=== PATIENT | male | born 1955 | race African-American/Black ===

== ENCOUNTER 2017-12-08 21:58 | Emergency (ER) | payer MEDICAID ==
[~2017-12-08] VITALS: Ht 175.3 cm; Wt 63.0 kg
[2017-12-08] MEDS ORDERED: VITAMIN C500 M1 ORAL (22:17)
[2017-12-08] MEDS ORDERED: AMLODIPINE BESY10 MG ORAL (22:17)
[2017-12-08 22:20] VITALS: BP 170/92
--- NOTE | 2017-12-08 22:22 | Emergency Room Report ---
History of Present Illness General Chief Complaint: Chest Pain Source: Patient Present Illness HPI This is a 62-year-old male with history of high blood pressure and numb neck and throat cancer. He is status post tracheostomy and radiation. He said he just had a full body scan a few days ago and was told looks good. He presents with chief complaint of low blood count and mild chest tightness that's been ongoing for last 4 days. No fever chills. No nausea no vomiting. No radiation. Does feel tired when he walks. No other complaint. Allergies: Coded Allergies: No Known Allergies (Unverified , 12/08/17) Patient History Past Medical History: see triage record, old chart reviewed, HTN Past Surgical History: other Pertinent Family History: none Social History: Denies: smoking Immunizations: other Reviewed Nursing Documentation: PMH: Agreed; PSxH: Agreed Nursing Documentation-PMH Hx Cardiac Problems: Yes - CHF Hx Hypertension: Yes Hx Cancer: Yes - tongue cancer Review of Systems Constitutional: Reports: weakness Eye: Denies: eye pain, blurred vision ENT: Denies: ear pain, nose congestion, throat swelling Respiratory: Denies: cough, shortness of breath Cardiovascular: Reports: chest pain; Denies: palpitations Gastrointestinal: Denies: abdominal pain, diarrhea, nausea, vomiting Musculoskeletal: Denies: back pain, joint pain Skin: Denies: rash Neurological: Denies: headache, numbness Endocrine: Denies: increased thirst, increased urine Hematologic/Lymphatic: Denies: easy bruising All Other Systems: negative except mentioned in HPI Physical Exam Vital Signs Date Time Temp Pulse Resp B/P (MAP) Pulse Ox O2 Delivery O2 Flow Rate FiO2 12/08/17 22:13 85 13 170/92 100 Room Air vitals with high blood pressure Sp02 EP Interpretation: reviewed, normal General Appearance: well appearing, no apparent distress, alert Head: normocephalic, atraumatic Eyes: bilateral eye PERRL, bilateral eye EOMI ENT: hearing grossly normal, normal pharynx Neck: full range of motion, supple, no meningismus, tracheotomy Respiratory: chest non-tender, lungs clear, normal breath sounds Cardiovascular #1: regular rate, rhythm, no murmur Gastrointestinal: normal bowel sounds, non tender, no mass, no organomegaly, no bruit, non-distended Musculoskeletal: back normal, gait/station normal, normal range of motion Psychiatric: mood/affect normal Skin: warm/dry Medical Decision Making Diagnostic Impression: Primary Impression: Anemia Qualified Codes: D64.9 - Anemia, unspecified Additional Impression: CKD (chronic kidney disease) Qualified Codes: N18.9 - Chronic kidney disease, unspecified ER Course Patient with anemia. No evidence of ACS, PE, dissection to name a few. We'll put on iron supplements. He does say that he has kidney problem but doesn't know his creatinine level. will print out labs for his doctor. Lab Results Impression labs with anemia and elevated creatinine EKG Diagnostic Results Rate: normal Rhythm: NSR ST Segments: no acute changes Rhythm Strip Diag. Results Rhythm Strip Time: 22:35 EP Interpretation: yes Rate: 85 Rhythm: NSR, no PVC's, no ectopy Chest X-Ray Diagnostic Results Chest X-Ray Diagnostic Results : Chest X-Ray Ordered: Yes # of Views/Limited/Complete: 1 View Indication: Chest Pain EP Interpretation: Yes Interpretation: no consolidation, no effusion, no pneumothorax, no acute cardiopulmonary disease, other - trach Impression: No acute disease Electronically Signed by: Champ Stanford MD Last Vital Signs Date Time Temp Pulse Resp B/P (MAP) Pulse Ox O2 Delivery O2 Flow Rate FiO2 12/08/17 22:13 85 13 170/92 100 Room Air Status: improved Disposition: HOME, SELF-CARE Condition: Stable Scripts Ferrous Sulfate (Ferrous Sulfate) 300 Mg/5 Ml Liquid 300 MG GT DAILY for 90 Days, ML Prov: CHAMP STANFORD M.D. 12/08/17 Additional Instructions: follow-up with your doctor in 7 days. Return if symptoms worsen. CHAMP STANFORD M.D. Dec 08, 2017 22:22
[2017-12-08 22:54] LABS: HEMATOCRIT 25.3 % (42.0-52.0); HEMOGLOBIN 8.4 G/DL (14.2-18.0); MEAN CORPUSCULAR VOLUME 87 FL (80-99); PLATELET COUNT 423 K/UL (150-450); RED BLOOD COUNT 2.91 M/UL (4.70-6.10); WHITE BLOOD COUNT 6.5 K/UL (4.8-10.8)
[2017-12-08 22:57] LABS: BASOPHILS % (AUTO) 0.4 % (0.0-2.0); EOSINOPHILS % (AUTO) 0.2 % (0.0-3.0); LYMPHOCYTES % (AUTO) 4.7 % (20.0-45.0); MONOCYTES % (AUTO) 4.6 % (1.0-10.0); NEUTROPHILS % (AUTO) 90.2 % (45.0-75.0)
[2017-12-08 23:04] LABS: ANION GAP 4 mmol/L (5-15); BLOOD UREA NITROGEN 24 mg/dL (7-18); CALCIUM 9.2 MG/DL (8.5-10.1); CARBON DIOXIDE 34 MMOL/L (21-32); CHLORIDE 102 MMOL/L (98-107); POTASSIUM 3.4 MMOL/L (3.5-5.1); SODIUM 140 MMOL/L (136-145)
[2017-12-08 23:19] LABS: ALANINE AMINOTRANSFERASE 19 U/L (12-78); ALBUMIN 2.9 G/DL (3.4-5.0); ALBUMIN/GLOBULIN RATIO 0.6 (1.0-2.7); ALKALINE PHOSPHATASE 63 U/L (46-116); ASPARTATE AMINO TRANSFERASE 25 U/L (15-37); BILIRUBIN,TOTAL 0.3 MG/DL (0.2-1.0); CKMB 1.9 NG/ML (0.0-3.6); CREATINE KINASE 192 U/L (26-308)
[2017-12-08] MEDS ORDERED: FERROUS SU300 MG/52 GT (23:53)
[2017-12-09] MEDS ORDERED: ZOFRAN4 MG ORAL
[2017-12-09 00:20] VITALS: BP 166/88
--- NOTE | 2017-12-09 10:58 | Diagnostic Imaging Report ---
Indication: Dyspnea Technique: XRAY Chest 1v Comparison: None Findings: Tracheostomy tube in place. Heart size and mediastinal contours are stable. There is no focal airspace consolidation, pleural effusion or pneumothorax. Nonspecific gas in the splenic flexure. No acute osseous abnormalities appreciated. Impression: No definite radiographic evidence of acute cardiopulmonary disease. Tracheostomy tube in place.
--- NOTE | 2017-12-11 21:27 | Cardiology Report ---
APPROVED REPORT EKG Measurement Heart [id number] Normal sinus rhythm Minimal voltage criteria for LVH, may be normal variant Nonspecific T wave abnormality Prolonged QT Abnormal ECG
== END 2017-12-09 00:20 | disposition home or self-care (01) ==
LOC: EMR 22:27
DX: D64.9 Anemia, unspecified (principal); I11.0 Hypertensive heart disease with heart failure; I50.9 Heart failure, unspecified; Z85.810 Personal history of malignant neoplasm of tongue; Z93.0 Tracheostomy status
CPT/HCPCS: 36415; 71045; 80053; 82550; 82553; 84484; 85025; 86850; 86900; 86901; 93005; 99283

== ENCOUNTER 2018-05-21 20:14 | Emergency (ER) | payer MEDICAID ==
[~2018-05-21] VITALS: Ht 175.3 cm; Wt 58.1 kg
[~2018-05-21 20:14] MED LIST: AMLODIPINE BESY10 MG ORAL; FERROUS SU300 MG/52 GT; VITAMIN C500 M1 ORAL; ZOFRAN4 MG ORAL
--- NOTE | 2018-05-21 21:25 | Emergency Room Report ---
History of Present Illness General Chief Complaint: Chest Pain Source: Patient Present Illness HPI Is a 62-year-old male with a history of high blood pressure and neoplasm of his tongue. He status post tracheostomy and feeding tube because of it. He presents with 2 complaints. First complaint is chest pain. His been an ongoing intermittent issue for the last couple months. He scheduled see a electromedical equipment technician. Pain is sharp in nature. To the left side. No radiation. No nausea no vomiting associated with it. No diaphoresis. No exertional component. His second complaint is his G-tube is not working. Onset today. He said he cannot give himself medicine through it. He cannot aspirate from it. He has nausea and vomiting and pain associated with it. No fever or chills. No diarrhea. Never had this problem before. His G-tube has been in for over a year. Allergies: Coded Allergies: No Known Allergies (Unverified , 12/08/17) Patient History Past Medical History: see triage record, old chart reviewed, HTN Past Surgical History: other Pertinent Family History: other Social History: Denies: smoking Immunizations: other Reviewed Nursing Documentation: PMH: Agreed; PSxH: Agreed Nursing Documentation-PMH Past Medical History: No History, Except For Hx Cardiac Problems: Yes - CHF Hx Hypertension: Yes Hx Cancer: Yes - tongue cancer Review of Systems Eye: Denies: eye pain, blurred vision ENT: Denies: ear pain, nose congestion, throat swelling Respiratory: Denies: cough, shortness of breath Cardiovascular: Reports: chest pain; Denies: palpitations Gastrointestinal: Reports: abdominal pain; Denies: diarrhea, nausea, vomiting Musculoskeletal: Denies: back pain, joint pain Skin: Denies: rash Neurological: Denies: headache, numbness Endocrine: Denies: increased thirst, increased urine Hematologic/Lymphatic: Denies: easy bruising All Other Systems: negative except mentioned in HPI Physical Exam Vital Signs Date Time Temp Pulse Resp B/P (MAP) Pulse Ox O2 Delivery O2 Flow Rate FiO2 05/21/18 20:34 98.2 87 14 145/89 99 Room Air 98.2 vitals with high blood pressure Sp02 EP Interpretation: reviewed, normal General Appearance: no apparent distress, alert, thin, Chronically Ill Head: normocephalic, atraumatic Eyes: bilateral eye PERRL, bilateral eye EOMI ENT: hearing grossly normal, normal pharynx Neck: full range of motion, supple, no meningismus Respiratory: chest non-tender, lungs clear, normal breath sounds Cardiovascular #1: regular rate, rhythm, no murmur Gastrointestinal: normal bowel sounds, non tender, no mass, no organomegaly, no bruit, non-distended, other - G-tube site is clean Musculoskeletal: back normal, gait/station normal, normal range of motion Psychiatric: mood/affect normal Skin: warm/dry Medical Decision Making Diagnostic Impression: Primary Impression: Chest pain Qualified Codes: R07.9 - Chest pain, unspecified Additional Impressions: Feeding tube dysfunction Qualified Codes: T85.598A - Other mechanical complication of other gastrointestinal prosthetic devices, implants and grafts, initial encounter Abdominal pain Qualified Codes: R10.84 - Generalized abdominal pain CHF (congestive heart failure) Qualified Codes: I50.9 - Heart failure, unspecified Constipation Qualified Codes: K59.00 - Constipation, unspecified Anemia Qualified Codes: D64.9 - Anemia, unspecified Pulmonary nodule, right ER Course Patient with chest pain. Atypical in nature. No evidence of ST elevation [place]. He does have risk factor for CAD. A second issue is his malfunctioning G-tube. I try flushing it but was unsuccessful. There seemed to be an obstruction. I tried deflating the balloon and removing the G-tube without was unsuccessful also. I spoke with the nurse for [facility] and she accepted the patient for Dr. De La Cruz. Lab Results Impression labs with elevated BNP and anemia EKG Diagnostic Results Rate: normal Rhythm: NSR ST Segments: no acute changes Rhythm Strip Diag. Results Rhythm Strip Time: 21:24 EP Interpretation: yes Rate: 80 Rhythm: NSR, no PVC's, no ectopy Chest X-Ray Diagnostic Results Chest X-Ray Diagnostic Results : Chest X-Ray Ordered: Yes # of Views/Limited/Complete: 1 View Indication: Chest Pain EP Interpretation: Yes Interpretation: no consolidation, no effusion, no pneumothorax, no acute cardiopulmonary disease Impression: No acute disease Electronically Signed by: Champ Stanford MD CT/MRI/US Diagnostic Results CT/MRI/US Diagnostic Results : Imaging Test Ordered: CT abdomen and pelvis Impression Read by radiologist. Massive colonic stool burn. Portal vein hypertension. Pulmonary nodule. Last Vital Signs Date Time Temp Pulse Resp B/P (MAP) Pulse Ox O2 Delivery O2 Flow Rate FiO2 05/21/18 20:34 98.2 87 14 145/89 99 Room Air 98.2 Status: improved Disposition: [facility]FER [facility] Condition: Stable CHAMP STANFORD M.D. May 21, 2018 21:25
[2018-05-21 21:47] LABS: BASOPHILS % (AUTO) 0.6 % (0.0-2.0); EOSINOPHILS % (AUTO) 1.3 % (0.0-3.0); HEMATOCRIT 27.3 % (42.0-52.0); HEMOGLOBIN 8.6 G/DL (14.2-18.0); LYMPHOCYTES % (AUTO) 6.9 % (20.0-45.0); MEAN CORPUSCULAR VOLUME 81 FL (80-99); MONOCYTES % (AUTO) 6.4 % (1.0-10.0); NEUTROPHILS % (AUTO) 84.8 % (45.0-75.0); PLATELET COUNT 452 K/UL (150-450); RED BLOOD COUNT 3.36 M/UL (4.70-6.10); RED CELL DISTRIBUTION WIDTH 14.5 % (11.6-14.8)
[2018-05-21 21:54] LABS: INR 0.9 (0.9-1.1)
[2018-05-21 21:55] LABS: ANION GAP 7 mmol/L (5-15); BLOOD UREA NITROGEN 22 mg/dL (7-18); CALCIUM 9.2 MG/DL (8.5-10.1); CARBON DIOXIDE 30 MMOL/L (21-32); CHLORIDE 103 MMOL/L (98-107); CREATININE 1.6 MG/DL (0.55-1.30); SODIUM 140 MMOL/L (136-145)
[2018-05-21 22:03] LABS: ALANINE AMINOTRANSFERASE 19 U/L (12-78); ALBUMIN 2.6 G/DL (3.4-5.0); ALBUMIN/GLOBULIN RATIO 0.5 (1.0-2.7); ALKALINE PHOSPHATASE 60 U/L (46-116); ASPARTATE AMINO TRANSFERASE 30 U/L (15-37); BILIRUBIN,TOTAL 0.2 MG/DL (0.2-1.0); CREATINE KINASE 164 U/L (26-308)
[2018-05-21 22:07] VITALS: BP 145/103
[2018-05-21 23:03] VITALS: BP 157/99
[2018-05-22 00:13] VITALS: BP 151/87
[2018-05-22 00:22] VITALS: BP 151/87
--- NOTE | 2018-05-22 11:03 | Diagnostic Imaging Report ---
Indication: Chest pain Technique: One view of the chest Comparison: For 2017 Findings: There is a very faint 2.5 cm rounded opacity at the right lung base, not evident previously. Lungs and pleural spaces are otherwise clear. The heart size is normal. Previously demonstrated endotracheal tube is no longer evident Impression: Faint right basilar 2.5 cm nodule, not definitely evident previously, concerning for neoplasm No acute process otherwise
--- NOTE | 2018-05-22 11:08 | Diagnostic Imaging Report ---
Indication: Abdominal pain Technique: Spiral acquisitions obtained through the abdomen and pelvis. No oral contrast utilized, per emergency room physician request No IV contrast utilized, per referring physician request.. Multiplanar reconstructions were generated. Total dose length product 568.49 mGycm. CTDIvol(s) 11.09 mGy. Dose reduction achieved using automated exposure control Comparison: None Findings: Exam is limited due to lack of oral and IV contrast, asthenic body habitus. The appendix is normal. Considerable stool is seen throughout the colon. The rectum is mildly distended with stool. There is no gross rectal wall thickening or perirectal infiltration, however. No small bowel distention. No free or loculated intraperitoneal gas or fluid. There is a gastrostomy in good position, balloon inflated within the gastric lumen. Lack of IV contrast limits assessment of solid organs. The liver is grossly unremarkable. There may be portal venous distention. The gallbladder is nondistended, unremarkable. No biliary ductal dilatation. The pancreas, spleen, adrenals, kidneys are unremarkable. No retroperitoneal or mesenteric mass or adenopathy. No pelvic mass or adenopathy. There are degenerative changes of the bilateral hips and bilateral sacroiliac joints. There are also mild degenerative changes of the lumbar spine. At the right lung base, there is a round equivocally slightly spiculated nodule which measures 2.7 cm in diameter. Reticular interstitial disease is seen in the medial lower lobes bilaterally. Impression: 2.7 cm right basilar lung nodule. As this is not evident on a prior chest radiograph of 12/08/2017, this is suspicious for primary pulmonary neoplasm. Evidence of at least mild rectal fecal impaction. Evidence of constipation elsewhere in the colon Gastrostomy in good position Portal venous distention, significance uncertain, could indicate portal hypertension although no evidence of cirrhosis is demonstrated Degenerative changes of the lumbar spine, hips, and bilateral sacroiliac joints Reticular interstitial pulmonary parenchymal disease bilaterally. This agrees with the preliminary interpretation provided overnight by [employer] teleradiology service. The CT scanner at [facility] is accredited by the [employer] and the scans are performed using protocols designed to limit radiation exposure to as low as reasonably achievable to attain images of sufficient resolution adequate for diagnostic evaluation.
--- NOTE | 2018-05-22 15:48 | Cardiology Report ---
APPROVED REPORT EKG Measurement Heart [id number] Normal sinus rhythm Normal ECG
== END 2018-05-22 00:23 | disposition short-term general hospital (02) ==
LOC: EMR 21:36
DX: R07.9 Chest pain, unspecified (principal); T85.598A Other mechanical complication of other gastrointestinal prosthetic devices, implants and grafts, initial encounter; C02.9 Malignant neoplasm of tongue, unspecified; I11.0 Hypertensive heart disease with heart failure; I50.9 Heart failure, unspecified
CPT/HCPCS: 36415; 71045; 74176; 80053; 82550; 83880; 84484; 85025; 85610; 85730; 93005; 96374; 99285; J0360

== ENCOUNTER 2018-10-25 22:47 | Emergency (ER) | payer MEDICAID ==
[~2018-10-25] VITALS: Ht 167.6 cm; Wt 68.0 kg
[2018-10-25 22:59] VITALS: BP 123/84
--- NOTE | 2018-10-25 22:59 | NUR ---
ED Nurse Note: Patient presents with multiple complaints and SOB, cancer patient,
--- NOTE | 2018-10-25 23:18 | Emergency Room Report ---
History of Present Illness General Chief Complaint: Dyspnea/Respdistress Source: Patient, Medical Record Present Illness HPI This is a 63-year-old male with a history tongue and throat cancer status post radiation. He has a feeding tube for it. He presents with chief complaint of weakness. He said he has no motivation. He's been sitting on the couch for last 2 weeks. Going to remove around is to get up to use the bathroom. He also complaining of some shortness of breath because of pulling of secretion in the throat. Denies any fever chills but denies any nausea vomiting. Denies any cough. No other complaint. Also said that his G-tube was broken at the end for the last 2 months. He has been using a syringe to give himself food and fluids. Allergies: Coded Allergies: No Known Allergies (Unverified , 12/08/17) Patient History Past Medical History: see triage record, old chart reviewed Past Surgical History: other Pertinent Family History: none Social History: Denies: smoking Immunizations: other Reviewed Nursing Documentation: PMH: Agreed; PSxH: Agreed Nursing Documentation-PMH Past Medical History: No History, Except For Hx Cardiac Problems: Yes - CHF Hx Hypertension: Yes Hx Cancer: Yes - tongue cancer Review of Systems Constitutional: Reports: malaise, weakness Eye: Denies: eye pain, blurred vision ENT: Denies: ear pain, nose congestion, throat swelling Respiratory: Denies: cough, shortness of breath Cardiovascular: Denies: chest pain, palpitations Gastrointestinal: Denies: abdominal pain, diarrhea, nausea, vomiting Musculoskeletal: Denies: back pain, joint pain Skin: Denies: rash Neurological: Denies: headache, numbness Endocrine: Denies: increased thirst, increased urine Hematologic/Lymphatic: Denies: easy bruising All Other Systems: negative except mentioned in HPI Physical Exam Vital Signs Date Time Temp Pulse Resp B/P (MAP) Pulse Ox O2 Delivery O2 Flow Rate FiO2 10/25/18 22:56 97.9 131 18 123/84 99 Room Air vitals with tachycardia Sp02 EP Interpretation: reviewed, normal General Appearance: well appearing, no apparent distress, alert Head: normocephalic, atraumatic Eyes: bilateral eye PERRL, bilateral eye EOMI ENT: hearing grossly normal, dry mucus membranes Neck: full range of motion, supple, no meningismus Respiratory: chest non-tender, lungs clear, normal breath sounds Cardiovascular #1: regular rate, rhythm, no murmur, tachycardia - Heart rate 115 Gastrointestinal: normal bowel sounds, non tender, no mass, no organomegaly, no bruit, non-distended Musculoskeletal: back normal, gait/station normal, normal range of motion Neurologic: alert, oriented x3 Psychiatric: mood/affect normal Skin: warm/dry Medical Decision Making Diagnostic Impression: Primary Impression: LEONOR (acute kidney injury) Additional Impressions: Weakness Mass of right lung ER Course Patient with increasing weakness and neck pain. Also with shortness of breath. Patient has a history of tongue and neck cancer. He has a new mass in the right lower lobe. He has no fever. Breath sounds are normal. White count and normal. This is concerning for neoplastic process. I gave him antibiotics to cover for pneumonia. Patient does show evidence of a GI/acute renal failure secondary to dehydration. He has a history of high blood pressure but has not been taking his medication. Discussed the case with Dr. Castellanos who accepted pt for transfer to [facility]. Lab Results Impression labs with elevated BUN/CREAT Rhythm Strip Diag. Results EP Interpretation: yes Rate: 120 Rhythm: NSR, no PVC's, no ectopy Chest X-Ray Diagnostic Results Chest X-Ray Diagnostic Results : Chest X-Ray Ordered: Yes # of Views/Limited/Complete: 1 View Indication: Shortness of Breath EP Interpretation: Yes Interpretation: no effusion, no pneumothorax, other - Circular right lower lobe mass/infiltrate Impression: Other - rt lung mass Electronically Signed by: Champ Stanford MD CT/MRI/US Diagnostic Results CT/MRI/US Diagnostic Results : Imaging Test Ordered: CT chest Impression 5cm mass in RLL. Read by radiologist. Last Vital Signs Date Time Temp Pulse Resp B/P (MAP) Pulse Ox O2 Delivery O2 Flow Rate FiO2 10/25/18 22:56 97.9 131 18 123/84 99 Room Air Status: improved Disposition: [facility] Condition: Stable Champ Stanford MD Oct 25, 2018 23:18
[2018-10-26 00:09] LABS: APPEARANCE,URINE CLEAR; BILIRUBIN, URINE NEGATIVE (NEGATIVE); GLUCOSE, URINE (UA) NEGATIVE (NEGATIVE); KETONES,URINE NEGATIVE (NEGATIVE); LEUKOCYTE ESTERASE ,URINE NEGATIVE (NEGATIVE); NITRITE,URINE NEGATIVE (NEGATIVE); PH,URINE 5 (4.5-8.0); UROBILINOGEN,URINE 1 MG/DL (0.0-1.0)
[2018-10-26 00:09] LABS: BASOPHILS % (AUTO) 0.9 % (0.0-2.0); HEMATOCRIT 35.1 % (42.0-52.0); LYMPHOCYTES % (AUTO) 11.9 % (20.0-45.0); MEAN CORPUSCULAR VOLUME 81 FL (80-99); NEUTROPHILS % (AUTO) 82.2 % (45.0-75.0); PLATELET COUNT 355 K/UL (150-450); RED BLOOD COUNT 4.34 M/UL (4.70-6.10); WHITE BLOOD COUNT 5.5 K/UL (4.8-10.8)
[2018-10-26 00:10] VITALS: BP 124/98
[2018-10-26 00:11] LABS: PROTEIN,URINE NEGATIVE (NEGATIVE)
[2018-10-26 00:12] LABS: COLOR,URINE YELLOW
--- NOTE | 2018-10-26 00:13 | NUR ---
ED Nurse Note: Patient resting comfortably, large bore Iv started at left AC for impending CT.
[2018-10-26 00:15] LABS: ANION GAP 12 mmol/L (5-15); BLOOD UREA NITROGEN 46 mg/dL (7-18); CALCIUM 9.6 MG/DL (8.5-10.1); CARBON DIOXIDE 27 MMOL/L (21-32); CHLORIDE 107 MMOL/L (98-107); CREATININE 2.4 MG/DL (0.55-1.30); POTASSIUM 4.4 MMOL/L (3.5-5.1); SODIUM 146 MMOL/L (136-145)
[2018-10-26] MEDS ORDERED: Isovue-370 150ml vial INJ PRN (00:15)
[2018-10-26 00:19] LABS: ALANINE AMINOTRANSFERASE 64 U/L (12-78); ALBUMIN 2.6 G/DL (3.4-5.0); ALBUMIN/GLOBULIN RATIO 0.6 (1.0-2.7); ALKALINE PHOSPHATASE 119 U/L (46-116); ASPARTATE AMINO TRANSFERASE 132 U/L (15-37); BILIRUBIN,TOTAL 0.6 MG/DL (0.2-1.0)
--- NOTE | 2018-10-26 00:49 | NUR ---
ED Nurse Note: Patient went down for CT.
[2018-10-26] MEDS ORDERED: LORazepam Inj 2mg/ml 1ml IV ONE (01:45)
[2018-10-26 02:00] VITALS: BP 130/90
[2018-10-26] MEDS ORDERED: cefTRIAXone 1 GM in NS 55 ML IVPB ONE (02:00)
[2018-10-26] MEDS ORDERED: Azithromycin 250mg tab ORAL ONE (02:00)
--- NOTE | 2018-10-26 02:05 | NUR ---
ED Nurse Note: unable to give azithromycin 500mg, Dr. Stanford will change order Addendum: 10/26/18 at 0446 by BPARENTELA ED Nurse Note: unable to give azithromycin 500mg by mouth, Dr. Stanford will change order
[2018-10-26] MEDS ORDERED: Metoprolol 5mg/5ml Inj IVP ONE ×2 (02:15→04:25)
[2018-10-26] MEDS ORDERED: Azithromycin 500 MG in NS 275 ML IV ONE (02:15)
[2018-10-26 03:02] VITALS: BP 11/84
--- NOTE | 2018-10-26 03:02 | NUR ---
ED Nurse Note: patient is sleeping and not easily aroused. patient is tachycardic and tachypneic, ERMD informed.
--- NOTE | 2018-10-26 03:10 | NUR ---
ED Nurse Note: Patient moved into to trauma due to unresponsiveness to ERMD and fish dressing machine feeder.
--- NOTE | 2018-10-26 03:18 | NUR ---
ED Nurse Note: Patient Intubated and CPR started. See manual documentation for code details.
--- NOTE | 2018-10-26 03:30 | NUR ---
ED Nurse Note: Patient had spontaneous pulse return. Levophed started, another liter of NS running, central line started.
[2018-10-26] MEDS ORDERED: Levophed 4mg/4mL Inj IV ONE (03:37)
[2018-10-26 03:45] VITALS: BP 107/48
--- NOTE | 2018-10-26 03:55 | NUR ---
ED Nurse Note: Patient pulse declined again, CPR resumed. Another 3 rounds of epi given.
--- NOTE | 2018-10-26 04:06 | NUR ---
ED Nurse Note: Shockable rhythm detected, shock given. CPR resumed.
--- NOTE | 2018-10-26 04:30 | NUR ---
ED Nurse Note: ERMD called time of , confirmed via ultrasound of the heart chambers. Chest x ray confirmed intubation placement. Pupils fixed, non reactive to light with no accomodation. Patient unresponsive to voice, touch or pain stimuli. Both satellite project site monitor and defib machine detect no pulse.
--- NOTE | 2018-10-26 05:05 | Emergency Room Report ---
History of Present Illness General Chief Complaint: Dyspnea/Respdistress Source: Medical Record Present Illness HPI Patient had been stable and waiting for transfer to [facility]. Because he had not been sleeping for couple weeks, his sister as I gave him some medicine to help him sleep. I gave her some Ativan. He was sleeping comfortably and her pressure was stable. He was actually able to wake up and talk. Around 3 AM, he started gagging and coughing. He didn't stop breathing. I moved him to the trauma room and proceeded to intubate him. There was no pulse with CPR was started. He coded several times. He received several rounds of epinephrine. At one point at the last code, he went into ventricular tachycardia. I defibrillated him once and that went into asystolic rhythm. He has no pulse and ultrasound show activity. I called the code and pronounced him . Please see the nursing code sheet for full information. Allergies: Coded Allergies: No Known Allergies (Unverified , 12/08/17) Nursing Documentation-[facility] Past Medical History: No History, Except For Hx Cardiac Problems: Yes - CHF Hx Hypertension: Yes Hx Cancer: Yes - tongue cancer Review of Systems All Other Systems: limited Physical Exam Vital Signs Date Time Temp Pulse Resp B/P (MAP) Pulse Ox O2 Delivery O2 Flow Rate FiO2 10/25/18 22:56 97.9 131 18 123/84 99 Room Air 10/26/18 03:43 100 Procedures Critical Care Time Critical Care Time Critical care is mandated in this patient who presented with cardiac arrest. Patient require my urgent intervention to attenuate the risks of metabolic collapse which may lead to cardiovascular collapse and . Critical care time is 45 minutes excluding any reportable procedure. Critical care time included evaluation, multiple reevaluation, looking at old charts, interpreting laboratory and diagnostic data, discussing case with patient and family and consultants, and charting. Central Line Central Line : Consent: Emergent Central Line Lumen: triple Maximal Sterile Barrier Tech: yes cap, yes mask, yes sterile gown, yes sterile gloves, yes large sterile sheet, yes hand hygiene, yes chlorhexidine prep Central Line Postion: femoral (R) Complications: none Central Line Post Position: sutured Attempts: One Patient Tolerated: Well CPR/Code Blue CPR/Code Blue Narrative please see nursing note list of medications. Should receive a total of 6 rounds of epinephrine and one round of defibrillation Intubation Intubation : Consent: Emergent Intubation Method: orotracheal Tube Size (cm): 7.0 Breath Sounds after Intubation: equal Intubation Complications: no complications Post Intubation Xray: Yes Progress/Xray Impression: Endotracheal tube in good position. no ptx Attempts: One Progress Patient has previous tracheostomy and his neck is very stiff. I was able to barely see his vocal cords, I place a bougie first and then with a 7-0 endotracheal tube over it. With this I was able to intubate the patient. Medical Decision Making Diagnostic Impression: Primary Impression: LEONOR (acute kidney injury) Additional Impressions: Mass of right lung Weakness Cardiac arrest Respiratory failure Qualified Codes: J96.00 - Acute respiratory failure, unspecified whether with hypoxia or hypercapnia ER Course Patient went into cardiac arrest. He coded twice here. He did get a pulse back initially. This may be secondary to NE, PE, dissection to name a few. Could also be secondary to his cancer. Unfortunately, patient . Patient's "sister" has been with him. She was able to contact his photoengraving finisher. She does not have phone number for his brother. EKG Diagnostic Results Rate: tachycardiac Rhythm: other ST Segments: other - Undetermined rhythm Chest X-Ray Diagnostic Results Chest X-Ray Diagnostic Results : Chest X-Ray Ordered: Yes # of Views/Limited/Complete: 1 View Indication: Shortness of Breath EP Interpretation: Yes Interpretation: no effusion, no pneumothorax, other - ETT in good position. RLL mass Impression: Other - ETT in good position Electronically Signed by: Champ Stanford MD Last Vital Signs Date Time Temp Pulse Resp B/P (MAP) Pulse Ox O2 Delivery O2 Flow Rate FiO2 10/26/18 03:50 66 15 Mechanical Ventilator 100 10/26/18 03:02 97.9 / 100 Status: worsened Disposition: Condition: Referrals: ARUN RODGERS,REFERRING (PCP) Champ Stanford MD Oct 26, 2018 05:05
--- NOTE | 2018-10-26 05:32 | NUR ---
cris barry (close friend)
--- NOTE | 2018-10-26 05:33 | NUR ---
ED Nurse Note: Called [facility], talked with Jonathan.
--- NOTE | 2018-10-26 08:30 | NUR ---
called patients son jeimer. rowan to find out who is mr head primary per son he will call me back with that information
--- NOTE | 2018-10-26 09:23 | Diagnostic Imaging Report ---
Indication: Shortness of breath, post intubation Technique: One view of the chest Comparison: 10/25/2018 Findings: Right basilar lung mass is again demonstrated. Right perihilar atelectasis is again demonstrated. There may be slightly increased faint infiltrate at the right lung base. Interim endotracheal intubation, endotracheal tube tip in good position approximately 5 cm above the caesar. There are overlying defibrillator paddles noted. The heart is enlarged. The left lung is clear. There is slight blunting of the right costophrenic sulcus, may indicate a small amount of pleural fluid. The bones are grossly intact. Impression: Satisfactory endotracheal intubation Right lower lobe lung mass again demonstrated Possibly slightly increased hazy consolidation of the right lung base.
--- NOTE | 2018-10-26 09:42 | Diagnostic Imaging Report ---
Clinical Indication: Shortness of breath Technique: Spiral acquisitions obtained through the chest. No IV contrast utilized, due to history of renal insufficiency. Multiplanar reconstructions generated. Total dose length product 591.96 mGycm. CTDIvol(s) 15.98 mGy. Dose reduction achieved using automated exposure control Comparison: No comparison chest CTs. Reference is made to an abdominal CT dated 05/21/2018 Findings: There is a mass at the right lung base, current plain measuring 5.5 cm in diameter. This was seen on previous abdomen pelvis CT and measured 2.2 cm. There is dense consolidation within the inferior right middle lobe. There may also be a 2 cm nodule. There are some consolidative opacities surrounding the mass in the right lower lobe as well. There is a small right pleural effusion. There is resultant compressive atelectasis of the posterior right lower lobe. Dependent atelectatic changes are also seen in the posterior left lower lobe. Pleural-based lesion is seen in the pleura of the lateral left upper lobe. Scarring is seen at both lung apices. The heart is mildly enlarged. No mediastinal or hilar mass or adenopathy. There is anasarca, with generalized edema of the subcutaneous fat and mediastinal fat. The included upper abdomen demonstrates a gastrostomy Impression: 5.5 cm right lower lung mass, increased in size when compared to previous abdomen pelvis CT 05/21/2018 Infiltrates and possible 2 cm nodule within the right middle lobe. Infiltrates are also seen within the right lower lobe Small right pleural effusion Bilateral basilar compressive atelectasis Anasarca Cardiomegaly Gastrostomy This agrees with the preliminary interpretation provided overnight by [facility]. The CT scanner at [facility] is accredited by the [employer] and the scans are performed using protocols designed to limit radiation exposure to as low as reasonably achievable to attain images of sufficient resolution adequate for diagnostic evaluation.
--- NOTE | 2018-10-26 11:00 | NUR ---
called again ald left message to call back
--- NOTE | 2018-10-26 11:06 | Diagnostic Imaging Report ---
Indication: Shortness of breath Technique: One view of the chest Comparison: And 15/12/2017 Findings: Interim enlargement of previously demonstrated right basilar lung mass. There is some infiltrate or adenopathy in the right infrahilar region. The heart is enlarged. The left lung and pleural space are grossly clear Impression: Enlarging right lower lobe lung mass, presumably enlarging neoplasm Right infrahilar adenopathy versus infiltrate
== END 2018-10-26 04:30 | disposition expired ==
LOC: EMR 23:05
DX: N17.9 Acute kidney failure, unspecified (principal); R53.1 Weakness; R91.8 Other nonspecific abnormal finding of lung field; I11.0 Hypertensive heart disease with heart failure; I50.9 Heart failure, unspecified; I46.9 Cardiac arrest, cause unspecified; J96.00 Acute respiratory failure, unspecified whether with hypoxia or hypercapnia; Z85.810 Personal history of malignant neoplasm of tongue; Z85.89 Personal history of malignant neoplasm of other organs and systems
CPT/HCPCS: 31500; 36415; 36556; 71045; 71250; 80053; 80307; 81001; 85025; 93005; 94002; 94664; 96361; 96365; 96367; 96375; 96376; 99291; J0171; J0456; J0696; J3490; J7050; Z7502